=== PATIENT | female | born 1960 | race Caucasian/White ===

== ENCOUNTER 2019-02-04 00:43 | Emergency (ER) | payer MEDICAID, OTHER ==
[~2019-02-04] VITALS: Ht 167.6 cm; Wt 90.7 kg
[2019-02-04] MEDS ORDERED: ACTIVATED CHARCOAL 50 GM/240 ML SOL PO ONE ×2 (01:00)
[2019-02-04 01:22] LABS: Mean Corpuscular Hgb Conc. 34.2 g/dL (32.0-36.0)
[2019-02-04 01:24] LABS: Hematocrit 48.1 % (36.0-46.0); Hemoglobin 16.4 g/dL (12.2-16.2); Mean Corpuscular Hemoglobin 34.3 pg (28.0-32.0); Mean Corpuscular Volume 100.5 fL (80.0-100.0); Platelet Count (auto) 282 10^3/uL (140-450); Red Blood Cells 4.78 10^6/uL (4.0-5.20); Red Cell Distribution Width 13.5 % (11.8-14.3); White Blood Cell 9.2 10^3/uL (4.4-10.8)
[2019-02-04 01:32] LABS: Band Neutrophils % (manual) 0; Basophils % (manual) 0 (0.0-2.0); Blast Cells 0; Metamyelocytes % 0; Myelocytes % 0; Promyelocytes % 0
[2019-02-04 01:41] LABS: Acetaminophen < 2.0 ug/mL (10-30); Albumin 3.7 g/dL (3.4-5.0); Amylase 103 U/L (25-115); BUN/Creatinine Ratio 6.9; Potassium 3.2 mmol/L (3.5-5.1); Salicylate 1.8 mg/dL (2.8-20.0)
[2019-02-04 01:44] LABS: Bilirubin, Total 0.4 mg/dL (0.2-1.0); Total Protein 8.4 g/dL (6.4-8.2)
[2019-02-04 01:45] LABS: Lipase 1445 U/L (73-393)
[2019-02-04] MEDS ORDERED: SODIUM CHLORIDE 0.9% 1,000 ML IV ONE ×2 (02:00→04:30)
[2019-02-04 02:55] LABS: Eosinophils % (manual) 1 (0-7); Lymphocytes % (manual) 59 (10.0-50.0); Monocytes % (manual) 3 (0-12); Reactive Lymphocytes 1
[2019-02-04] MEDS ORDERED: ONDANSETRON HCL 4 MG/2 ML VIAL ONE (03:07)
[2019-02-04] MEDS ORDERED: ONDANSETRON HCL 4 MG/2 ML VIAL IV ONE (03:15)
[2019-02-04] MEDS ORDERED: POTASSIUM CHL 20MEQ/100ML 100 ML IV SCH (04:30)
[2019-02-04] MEDS ORDERED: POTASSIUM EFFERVESENT TAB 25 MEQ PO ONE (04:45)
[2019-02-04] MEDS ORDERED: POTASSIUM CHL 20MEQ/100ML 100 ML IV ONE (05:05)
[2019-02-04] MEDS: POTASSIUM CHL 20MEQ/100ML 100 ML IV SCH ×2 (05:16→07:03)
[2019-02-04 06:20] LABS: Urine Bacteria FEW /hpf (None Seen); Urine Blood Negative /uL (Negative); Urine Hyaline Cast FEW /lpf (0 - 2); Urine Mucus FEW (None Seen); Urine Specific Gravity 1.014 (1.001-1.035); Urine WBC None Seen /hpf (0 - 5)
[2019-02-04 06:59] LABS: Benzodiazephine Screen, Urine NEGATIVE (NEGATIVE)
[2019-02-04 07:09] LABS: Amphetamine Screen, Urine NEGATIVE (NEGATIVE); Barbiturate Scree,Urine NEGATIVE (NEGATIVE); Cannabinoid Screen, Urine NEGATIVE (NEGATIVE); Cocaine Screen, Urine NEGATIVE (NEGATIVE); Opiate Scree,Urine POSITIVE (NEGATIVE); Phencyclidine Screen, Urine NEGATIVE (NEGATIVE)
[2019-02-04 11:05] VITALS: BP 122/73
== END 2019-02-04 11:31 | disposition short-term general hospital (02) ==
LOC: ER 00:47
DX: F32.9 Major depressive disorder, single episode, unspecified (principal); R45.851 Suicidal ideations; F10.10 Alcohol abuse, uncomplicated; I10 Essential (primary) hypertension; F19.10 Other psychoactive substance abuse, uncomplicated
CPT/HCPCS: 36415; 71045; 74176; 80053; 80307; 80320; 80329; 81001; 82150; 83690; 85007; 85027; 93005; 94761; 96374; 99285; J2405; J3480; J7030

== ENCOUNTER 2019-08-09 11:19 | Emergency (ER) | payer MEDICAID ==
[~2019-08-09] VITALS: Ht 160 cm; Wt 70.3 kg
[~2019-08-09 11:19] MED LIST: DABI75CA5 PO
[2019-08-09] MEDS ORDERED: SODIUM CHLORIDE 0.9% 1,000 ML IV ONE (13:01)
[2019-08-09 13:22] LABS: Basophils # (auto) 0.1 uL; Basophils % (auto) 1.1 % (0.0-2.0); Eosinophils # (auto) 0.2 uL; Eosinophils % (auto) 3.4 % (0.0-7.0); Hematocrit 42.9 % (36.0-46.0); Hemoglobin 14.5 g/dL (12.2-16.2); Lymphocytes # (auto) 2.7 uL; Lymphocytes % (auto) 40.7 % (10.0-50.0); Mean Corpuscular Hemoglobin 31.8 pg (28.0-32.0); Mean Corpuscular Hgb Conc. 33.9 g/dL (32.0-36.0); Mean Corpuscular Volume 93.6 fL (80.0-100.0); Monocytes # (auto) 0.4 uL; Monocytes % (auto) 6.3 % (0.0-12.0); Neutrophils # (auto) 3.2 uL; Neutrophils % (auto) 48.5 % (37.0-80.0); Nucleated Red Blood Cells % 0.1 %; Platelet Count (auto) 251 10^3/uL (140-450); Red Blood Cells 4.58 10^6/uL (4.0-5.20); Red Cell Distribution Width 14.8 % (11.8-14.3); White Blood Cell 6.6 10^3/uL (4.4-10.8)
[2019-08-09 13:39] LABS: INR 1.2 (0.9-1.15); Partial Thromboplastin Time 37.3 sec (23.64-32.05)
[2019-08-09 13:49] LABS: Alanine Aminotransferase 23 U/L (13-56); Albumin 3.3 g/dL (3.4-5.0); Anion Gap 7 (5-15); Aspartate Aminotransferase 36 U/L (15-37); BUN/Creatinine Ratio 7.6; Blood Urea Nitrogen 5 mg/dL (7-18); Calcium 9.3 mg/dL (8.5-10.1); Carbon Dioxide 28 mmol/L (21-32); Chloride 105 mmol/L (98-107); GFR African American 119 mL/min; GFR Non-African American 98 mL/min; Glucose 85 mg/dL (74-106); Potassium 3.6 mmol/L (3.5-5.1); Sodium 140 mmol/L (136-145)
[2019-08-09 13:54] LABS: Alkaline Phosphatase 101 U/L (45-117); Bilirubin, Total 0.7 mg/dL (0.2-1.0)
[2019-08-09] MEDS ORDERED: SPIRONOLACTONE 25 MG TAB PO ONE (15:15)
[2019-08-09] MEDS ORDERED: FUROSEMIDE 40 MG TAB PO ONE (15:15)
[2019-08-09 16:50] VITALS: BP 122/77
== END 2019-08-09 16:57 | disposition home or self-care (01) ==
LOC: ER 11:19
DX: R06.02 Shortness of breath (principal); J90 Pleural effusion, not elsewhere classified; I10 Essential (primary) hypertension
CPT/HCPCS: 36415; 71046; 80053; 83735; 83880; 84443; 84484; 85025; 85379; 85610; 85730; 93005; 99284; J7030